=== PATIENT | female | born 1990 | race Caucasian/White ===

== ENCOUNTER 2024-10-12 12:43 | Emergency (ER) | payer BC ==
[~2024-10-12] VITALS: Ht 160 cm; Wt 100.0 kg
[2024-10-12] MEDS: TETanus/Pertussis (Acell)/Diphther VAC/PF (Tdap-Adult) 0.5ml syringe IMVAC ONE (13:37)
[2024-10-12] MEDS ORDERED: SULF1TAB49 PO (14:49)
[2024-10-12] MEDS: LIDOcaine 1% 30ml preserv. free vial IJ STA (15:04)
[2024-10-12] MEDS ORDERED: FLUC150T22 PO (16:04)
[2024-10-12 16:16] VITALS: BP 134/78; PULSE 78; RESP 18; TEMP 97.1; O2SAT 97
== END 2024-10-12 16:18 | disposition home or self-care (01) ==
LOC: ER 12:44
DX: S61.412A Laceration without foreign body of left hand, initial encounter (principal); Z79.2 Long term (current) use of antibiotics; W26.0XXA Contact with knife, initial encounter; Y93.G1 Activity, food preparation and clean up; Y92.89 Other specified places as the place of occurrence of the external cause; Y99.8 Other external cause status
CPT/HCPCS: 12001; 73130; 90471; 90715; 99283; J2003